=== PATIENT | female | born 1990 ===

== ENCOUNTER 2020-01-17 11:20 | Emergency (ER) | payer OTHER ==
[~2020-01-17] VITALS: Ht 170.2 cm; Wt 101.6 kg
[2020-01-17] MEDS ORDERED: acetaminophen 325mg tablet PO ONE ×2 (13:30→13:40)
[2020-01-17] MEDS ORDERED: CEPH-572 PO (13:45)
[2020-01-17 13:49] VITALS: BP 130/70
== END 2020-01-17 14:03 | disposition home or self-care (01) ==
LOC: ER 11:21
DX: N64.4 Mastodynia (principal); R50.9 Fever, unspecified; Z79.2 Long term (current) use of antibiotics
CPT/HCPCS: 99283